=== PATIENT | female | born 1950 ===

== ENCOUNTER 2018-03-03 14:00 | Inpatient (IN) | payer OTHER ==
[2018-03-03] MEDS ORDERED: Albuterol-Ipratrop 3 mg / 0.5 (3 ml) UD INH STA ×3 (14:13→14:57)
[2018-03-03] MEDS ORDERED: Albuterol-Ipratrop 3 mg / 0.5 (3 ml) UD ONE ×2 (14:16→15:00)
--- NOTE | 2018-03-03 14:26 | ED PDOC ---
HPI: SOB/CHF/COPD Time Seen by Provider: 03/03/18 14:06 Chief Complaint (Nursing): Shortness Of Breath Chief Complaint (Provider): Shortness or breath History Per: Patient, EMS History/Exam Limitations: no limitations Onset/Duration Of Symptoms: Days (yesterday) Current Symptoms Are (Timing): Still Present Additional Complaint(s): 67 year old female, with a past medical history of CHF, asthma, hypercholesterolemia, HTN, and hypothyroidism, presented to the ED complaining of SOB and dyspnea on exertion since yesterday. Patient reports she arrived from [place] on Monday and has a "hollowing feeling in her chest." Patient is also complaining of orthopnea and nonproductive cough. She denies leg swelling and calf pain. PCP: none Past Medical History Reviewed: Historical Data, Nursing Documentation, Vital Signs Vital Signs: Last Vital Signs Temp 97.7 F 03/05/18 08:04 Pulse 96 H 03/05/18 08:04 Resp 20 03/05/18 08:04 BP 128/74 03/05/18 08:04 Pulse Ox 95 03/05/18 08:04 - Medical History PMH: Arthritis, Asthma, CHF, HTN, Hypercholesterolemia, Hypothyroidism - Surgical History Surgical History: No Surg Hx - Family History Family History: States: Unknown Family Hx - Social History Current smoker - smoking cessation education provided: No Alcohol: None Drugs: Denies - Home Medications Home Medications: Ambulatory Orders Medication Instructions Recorded Carvedilol [Coreg] 6.25 mg PO BID 03/03/18 Folic Acid [Folic Acid] 5 mg PO DAILY 03/03/18 Home Med [Home Med] 1 drop OU DAILY 03/03/18 Home Med [Home Med] 1 drop OU QID 03/03/18 Home Med [Home Med] 1 tab PO 1700 03/03/18 Home Med [Home Med] 1 tab PO BID 03/03/18 Home Med [Home Med] 1,000 mg PO BID 03/03/18 Home Med [Home Med] 10 mg PO DAILY 03/03/18 Home Med [Home Med] 75 mg PO DAILY 03/03/18 Methotrexate [Methotrexate] 7.5 mg PO DAILY 03/03/18 Rosuvastatin Calcium [Crestor] 10 mg PO HS 03/03/18 - Allergies Allergies/Adverse Reactions: Allergies Allergy/AdvReac Type Severity Reaction Status Date / Time No Known Allergies Allergy Verified 03/03/18 14:06 Review of Systems ROS Statement: Except As Marked, All Systems Reviewed And Found Negative Respiratory: Positive for: Cough (nonproductive), Shortness of Breath, Other ( orthopnea and dyspnea on exertion) Musculoskeletal: Negative for: Other (leg swelling and calf pain) Physical Exam - Reviewed Nursing Documentation Reviewed: Yes Vital Signs Reviewed: Yes - Physical Exam Appears: Positive for: Non-toxic. Negative for: No Acute Distress (mild respiratory distress) Head Exam: Positive for: ATRAUMATIC, NORMOCEPHALIC Skin: Positive for: Normal Color, Warm, Dry Eye Exam: Positive for: Normal appearance Neck: Positive for: Normal, Painless ROM Cardiovascular/Chest: Positive for: Regular Rate, Rhythm. Negative for: Murmur Respiratory: Positive for: Decreased Breath Sounds, Wheezing (bilateral) Extremity: Positive for: Normal ROM. Negative for: Pedal Edema, Calf Tenderness Neurologic/Psych: Positive for: Alert, Oriented. Negative for: Motor/Sensory Deficits - Laboratory Results Result Diagrams: 03/05/18 11:34 03/05/18 11:34 - ECG O2 Sat by Pulse Oximetry: 92 (RA) Pulse Ox Interpretation: Abnormal Medical Decision Making Medical Decision Making: Initial Impression: Asthma, CHF, PE Initial Plan: --ECG --ProBNP --CMP --TSH --Troponin --ED urine dipstick --CBC --D Dimer --PTT --Prothrombin --Chest X-ray --Albuterol 3mL INH --Methylprednisolone 125 mg IV --Blood culture --Peak flow --Urinalysis Scribe Attestation: Documented by Bright Ornelas acting as a scribe for Mikaela Roberts MD. Provider Scribe Attestation: All medical record entries made by the Scribe were at my direction and personally dictated by me. I have reviewed the chart and agree that the record accurately reflects my personal performance of the history, physical exam, medical decision making, and the department course for this patient. I have also personally directed, reviewed, and agree with the discharge instructions and disposition. Disposition - Clinical Impression Clinical Impression: Bronchitis, Asthma exacerbation - Disposition Disposition Time: 15:00 Condition: GUARDED Patient Signed Over To: Nighat Ortiz
[2018-03-03 14:45] LABS: BASO # 0.1 K/uL (0.0-0.2); BASO % 0.9 % (0.0-2.0); EOS % 0.6 % (0.0-4.0); HEMOGLOBIN 13.3 g/dL (12.0-16.0); LYMPH # 0.8 K/uL (1.0-4.3); LYMPH % 10.7 % (20.0-40.0); MEAN CELL VOLUME 86.2 fl (81.0-99.0); MEAN CORPUSCULAR HEMOGLOBIN 28.3 pg (27.0-31.0); MEAN CORPUSCULAR HGB CONC 32.9 g/dL (33.0-37.0); MEAN PLATELET VOLUME 7.7 fl (7.2-11.7); MONO # 0.8 K/uL (0.0-0.8); MONO % 10.1 % (0.0-10.0); NEUT # 5.9 K/uL (1.8-7.0); NEUT % 77.7 % (50.0-75.0); RBC 4.71 Mil/uL (3.80-5.20); RED CELL DISTRIBUTION WIDTH 18.9 % (11.5-14.5); WHITE BLOOD COUNT 7.6 K/uL (4.8-10.8)
--- NOTE | 2018-03-03 14:46 | RAD ---
HISTORY: SOB COMPARISON: No prior. FINDINGS: LUNGS: No active pulmonary disease. PLEURA: No significant pleural effusion identified, no pneumothorax apparent. CARDIOVASCULAR: Left subclavian access biventricular AICD/pacemaker. Atherosclerotic aortic calcifications. Cardiomediastinal silhouette prominent. OSSEOUS STRUCTURES: Degenerative changes. VISUALIZED UPPER ABDOMEN: Normal. OTHER FINDINGS: None. IMPRESSION: No active disease.
[2018-03-03 15:00] LABS: INR 1.2 (0.9-1.2); PARTIAL THROMBOPLASTIN TIME 36.1 Seconds (25.6-37.1); PROTHROMBIN TIME 13.7 Seconds (9.8-13.1)
[2018-03-03 15:08] LABS: ALB/GLOB RATIO 1.1 (1.0-2.1); ALT/SGPT 28 U/L (9-52); AST/SGOT 29 U/L (14-36); BLOOD UREA NITROGEN 13 mg/dl (7-17); CALCIUM 9.3 mg/dL (8.4-10.2); GFR AFRICAN-AMERICAN > 60; GFR NON-AFRICAN AMERICAN > 60
--- NOTE | 2018-03-03 15:14 | ED PDOC ---
- Laboratory Results Result Diagrams: 03/03/18 14:41 03/03/18 14:41 - ECG O2 Sat by Pulse Oximetry: 92 (RA) Medical Decision Making Medical Decision Makin:00 Patient endorsed to me from Dr. Roberts. Pending labs and final disposition. 17:15 Dr. Strong consulted. Upon reevaluation, patient is still short of breath. Patient has a pulse ox of 89-90 and is dyspneic. Peak flow is around 110. Patient has not significantly improved after medications were given in the ED. Will be admitted for persistent asthma exacerbation and oxygen requirement for observation under Dr. Strong. Scribe Attestation: Documented by Bright Ornelas acting as a scribe for Nighat Ortiz MD. Provider Scribe Attestation: All medical record entries made by the Scribe were at my direction and personally dictated by me. I have reviewed the chart and agree that the record accurately reflects my personal performance of the medical decision making and the department course for this patient. I have also personally directed, reviewed, and agree with the discharge instructions and disposition. Disposition Discussed With : Spencer Strong (ines) Doctor Will See Patient In The: Hospital Counseled Patient/Family Regarding: Studies Performed, Diagnosis - Clinical Impression Clinical Impression: Bronchitis, Asthma exacerbation - POA Present On Arrival: None - Disposition Disposition: Hospitalized as Observation Patient Disposition Time: 17:00 Condition: FAIR
[2018-03-03 15:16] LABS: B-TYPE NATRIURETIC PEPTIDE 182 pg/ml (0-900)
[2018-03-03] MEDS: Promethazine 12.5 mg/10 ml Syrup PO SCH (22:30)
[2018-03-04] MEDS: Albuterol-Ipratrop 3 mg / 0.5 (3 ml) UD INH SCH ×5 (00:08→19:20)
[2018-03-04] MEDS ORDERED: Home Med 1 UNIT PO SCH ×5 (09:00→17:00)
[2018-03-04] MEDS: Enoxaparin 40 mg Syringe SC SCH (10:54)
[2018-03-04] MEDS: Promethazine 12.5 mg/10 ml Syrup PO SCH ×4 (10:55→22:00)
[2018-03-04] MEDS: [UNRECOGNIZED DRUG - OTHER] PO SCH (18:52)
[2018-03-04] MEDS ORDERED: methylPREDNISolone 125 MG in Sodium Chloride 0.9% 50 ML IV SCH (22:00)
[2018-03-04] MEDS: CARVEDILOL 6.25 MG PO SCH (22:17)
[2018-03-04] MEDS: COMBIGAN OU SCH ×2 (22:18→22:19)
[2018-03-04] MEDS: FOLIC ACID PO SCH (22:20)
[2018-03-04] MEDS: [UNRECOGNIZED DRUG - OTHER] PO SCH (22:21)
[2018-03-04] MEDS: METHOTREXATE PO SCH (22:22)
[2018-03-04] MEDS: [UNRECOGNIZED DRUG - OTHER] PO SCH (22:23)
[2018-03-04] MEDS: [UNRECOGNIZED DRUG - OTHER] PO SCH (22:24)
[2018-03-05] MEDS: Albuterol-Ipratrop 3 mg / 0.5 (3 ml) UD INH SCH ×4 (01:07→19:21)
--- NOTE | 2018-03-05 08:19 | CP.PCM.HP ---
History of Present Illness - History of Present Illness History of Present Illness: This is a 67 y/o female admitted for increasing SOB since she arrived from [facility] few days ago.She denies any chest paibn but has dry cough. Has a hx of asthma, CHF and HTN and hypothyroidism and has been on maintenance medications. She claims that since she arrived last Monday, she started having dry cough and gets very SOB with light activity. Initial work up showed negative troponin,normal EKG normal CXR and negative proBNP. Present on Admission - Present on Admission Any Indicators Present on Admission: No History of DVT/PE: No History of Uncontrolled Diabetes: No Urinary Catheter: No Decubitus Ulcer Present: No Review of Systems - Respiratory Respiratory: Cough, Dyspnea Past Patient History - Past Medical History & Family History Past Medical History?: Yes - Past Social History Smoking Status: Never Smoked - CARDIAC Hx Cardiac Disorders: Yes (CHF, HTN, HIGH CHOLESTEROL) Hx Hypertension: Yes - PULMONARY Hx Respiratory Disorders: Yes (ASTHMA) - NEUROLOGICAL Hx Neurological Disorder: No - HEENT Hx HEENT Problems: No - RENAL Hx Chronic Kidney Disease: No - ENDOCRINE/METABOLIC Hx Endocrine Disorders: Yes (HYPOTHYROIDISM) Hx Hypothyroidism: Yes - HEMATOLOGICAL/ONCOLOGICAL Hx Blood Disorders: No Hx AIDS: No Hx Human Immunodeficiency Virus (HIV): No - INTEGUMENTARY Hx Dermatological Problems: No - MUSCULOSKELETAL/RHEUMATOLOGICAL Hx Musculoskeletal Disorders: Yes Hx Arthritis: Yes Hx Falls: No - GASTROINTESTINAL Hx Gastrointestinal Disorders: No - GENITOURINARY/GYNECOLOGICAL Hx Genitourinary Disorders: No - PSYCHIATRIC Hx Psychophysiologic Disorder: No Hx Substance Use: No - SURGICAL HISTORY Hx Surgeries: No - ANESTHESIA Hx Anesthesia: Yes Hx Anesthesia Reactions: No Meds Allergies/Adverse Reactions: Allergies Allergy/AdvReac Type Severity Reaction Status Date / Time No Known Allergies Allergy Verified 03/03/18 14:06 Physical Exam - Head Exam Head Exam: NORMAL INSPECTION - Eye Exam Eye Exam: Normal appearance - ENT Exam ENT Exam: Mucous Membranes Moist - Neck Exam Neck exam: Positive for: Normal Inspection - Respiratory Exam Respiratory Exam: Decreased Breath Sounds, Clear to Auscultation Bilateral - Cardiovascular Exam Cardiovascular Exam: REGULAR RHYTHM - GI/Abdominal Exam GI & Abdominal Exam: Normal Bowel Sounds - Neurological Exam Neurological exam: Alert, CN II-XII Intact, Oriented x3 Results - Vital Signs Recent Vital Signs: Last Vital Signs Temp 97.7 F 06/18/18 08:04 Pulse 96 H 03/05/18 08:04 Resp 20 03/05/18 08:04 BP 128/74 03/05/18 08:04 Pulse Ox 95 03/05/18 08:04 - Labs Result Diagrams: 03/03/18 14:41 03/03/18 14:41 Labs: Laboratory Results - last 24 hr 03/05/18 05:40 Troponin I < 0.0120 Assessment & Plan (1) Asthma exacerbation Status: Acute (2) Hypertension Status: Acute - Assessment and Plan (Free Text) Plan: start IV steroids neb tx troponin serial cont home meds check tsh echo
--- NOTE | 2018-03-05 08:25 | CP.PCM.PN ---
Subjective - Date & Time of Evaluation Date of Evaluation: 03/05/18 Time of Evaluation: 08:22 - Subjective Subjective: Patient has less wheezing but continues to have SOB even with light activity. Has no chest pain. Currently on Solumedrol 125 q 8 Objective - Vital Signs/Intake and Output Vital Signs (last 24 hours): Temp Pulse Resp BP Pulse Ox 97.7 F 96 H 20 128/74 95 03/05/18 08:04 03/05/18 08:04 03/05/18 08:04 03/05/18 08:04 03/05/18 08:04 - Medications Medications: Current Medications Albuterol/Ipratropium (Duoneb 3 Mg/0.5 Mg (3 Ml) Ud) 3 ml INH RQ6 [facility] Last Admin: 03/05/18 07:50 Dose: 3 ml Enoxaparin Sodium (Lovenox) 40 mg SC DAILY [facility] PRN Reason: Protocol Last Admin: 03/04/18 10:54 Dose: 40 mg Home Med (Patient's Own Medication) 1 unit PO DAILY [facility] Last Admin: 03/04/18 22:20 Dose: 1 unit Home Med (Patient's Own Medication) 1 unit PO DAILY [facility] PRN Reason: Protocol Last Admin: 03/04/18 22:22 Dose: 1 unit Home Med (Rosuvastatin Calcium [Crestor]) 10 mg PO HS [facility] Last Admin: 03/04/18 22:26 Dose: 10 mg Home Med (Patient Own Control [Patient Own Control]) 75 mg PO DAILY [facility] Last Admin: 03/04/18 18:52 Dose: 75 mg Home Med (Patient's Own Medication) 1 unit PO DAILY@1800 [facility] Last Admin: 03/04/18 22:21 Dose: 1 unit Home Med (Patient's Own Medication) 1 unit PO BID [facility] Last Admin: 03/04/18 22:24 Dose: 1 unit Home Med (Patient's Own Medication) 1 unit PO BID [facility] Last Admin: 03/04/18 22:23 Dose: 1 unit Home Med (Patient's Own Medication) 1 unit OU BID [facility] Last Admin: 03/04/18 22:19 Dose: 1 unit Home Med (Patient's Own Medication) 1 unit OU QID [facility] Last Admin: 03/04/18 22:25 Dose: 1 unit Home Med (Patient's Own Medication) 1 unit PO BID [facility] Last Admin: 03/04/18 22:17 Dose: 1 unit Methylprednisolone (Solu-Medrol) 125 mg IV Q8H [facility] Last Admin: 03/05/18 06:48 Dose: 125 mg Promethazine HCl (Phenergan Syrup) 12.5 mg PO QID [facility] Last Admin: 03/04/18 22:00 Dose: 12.5 mg - Labs Labs: 03/03/18 14:41 03/03/18 14:41 PT 13.7 Seconds (9.8-13.1) H 03/03/18 14:41 INR 1.2 (0.9-1.2) 03/03/18 14:41 APTT 36.1 Seconds (25.6-37.1) 03/03/18 14:41 - Head Exam Head Exam: NORMAL INSPECTION - Eye Exam Eye Exam: Normal appearance - Respiratory Exam Respiratory Exam: Clear to Ausculation Bilateral - Cardiovascular Exam Cardiovascular Exam: REGULAR RHYTHM - GI/Abdominal Exam GI & Abdominal Exam: Normal Bowel Sounds - Neurological Exam Neurological Exam: Awake, Oriented x3 - Psychiatric Exam Psychiatric exam: Normal Mood - Skin Skin Exam: Dry Assessment and Plan (1) Asthma exacerbation Status: Acute (2) Hypertension Status: Acute (3) CAD (coronary artery disease) Status: Acute - Assessment and Plan (Free Text) Plan: Hold carvedilol send for eCHO start Phys therapy
[2018-03-05] MEDS: Enoxaparin 40 mg Syringe SC SCH (08:39)
[2018-03-05] MEDS: [UNRECOGNIZED DRUG - OTHER] PO SCH ×2 (08:41→16:46)
[2018-03-05] MEDS: COMBIGAN OU SCH ×2 (08:42→16:47)
[2018-03-05] MEDS: CARVEDILOL 6.25 MG PO SCH ×2 (08:42→17:32)
[2018-03-05] MEDS: FOLIC ACID PO SCH (08:43)
[2018-03-05] MEDS: METHOTREXATE PO SCH (08:44)
[2018-03-05] MEDS: [UNRECOGNIZED DRUG - OTHER] PO SCH ×3 (08:45→16:55)
[2018-03-05] MEDS: [UNRECOGNIZED DRUG - OTHER] PO SCH ×2 (08:45→16:57)
[2018-03-05] MEDS: Promethazine 12.5 mg/10 ml Syrup PO SCH ×4 (08:46→21:52)
--- NOTE | 2018-03-05 09:34 | CARD ---
APPROVED REPORT EKG Measurement Heart [id number] <Conclusion> Atrial-sensed ventricular-paced rhythm with frequent premature ventricular complexes Abnormal ECG
--- NOTE | 2018-03-05 10:17 | CARD ---
APPROVED REPORT EXAM: Two-dimensional and M-mode echocardiogram with Doppler and color Doppler. Other Information Quality : FairRhythm : Pacemaker Technically limited study due to Poor Echo Window INDICATION Congestive Heart Failure Surgery/Intervention Pacemaker: 2D DIMENSIONS IVSd1.60 (0.7-1.1cm)LVDd3.30 (3.9-5.9cm) PWd1.27 (0.7-1.1cm)IVSs1.71 (0.8-1.2cm) LVDs1.74 (2.5-4.0cm)FS (%) 47.3 % PWs1.56 (0.8-1.2cm) M-Mode DIMENSIONS Left Atrium (MM)3.47 (2.5-4.0cm)IVSd1.29 (0.7-1.1cm) Aortic Root2.94 (2.2-3.7cm)LVDd4.71 (4.0-5.6cm) Aortic Cusp Exc.1.62 (1.5-2.0cm)PWd1.18 (0.7-1.1cm) IVSs1.47 cmFS (%) 31 % LVDs3.24 (2.0-3.8cm)PWs1.65 cm Mitral Valve E/A ratio0.0 TDI E/Lateral E'0.0E/Medial E'0.0 Pulmonary Valve PV Peak [place]232.8cm/s LEFT VENTRICLE The left ventricle is normal size. There is normal left ventricular wall thickness. Left ventricle systolic function is normal. The Ejection Fraction is 65-70%. There is normal LV segmental wall motion. Transmitral Doppler flow pattern is Grade I-abnormal relaxation pattern. RIGHT VENTRICLE The right ventricle is normal size. There is normal right ventricular wall thickness. The right ventricular systolic function is normal. ATRIA The left atrium size is normal. The right atrium size is normal. A pacing lead was seen traversing the tricuspid valve from RA to RV. AORTIC VALVE The aortic valve is normal in structure. No aortic regurgitation is present. There is no aortic valvular stenosis. MITRAL VALVE The mitral valve is normal in structure. There is no evidence of mitral valve prolapse. There is no mitral valve stenosis. There is no mitral valve regurgitation noted. TRICUSPID VALVE The tricuspid valve is normal in structure. There is no tricuspid valve regurgitation noted. PULMONIC VALVE The pulmonary valve is normal in structure. There is no pulmonic valvular regurgitation. GREAT VESSELS The aortic root is normal in size. The IVC is normal in size and collapses >50% with inspiration. PERICARDIAL EFFUSION The pericardium appears normal. <Conclusion> The left ventricle is normal size. There is normal left ventricular wall thickness. There is normal LV segmental wall motion. Left ventricle systolic function is normal. The Ejection Fraction is 65-70%. Transmitral Doppler flow pattern is Grade I-abnormal relaxation pattern.
--- NOTE | 2018-03-05 11:33 | CARD ---
APPROVED REPORT EKG Measurement Heart [id number] NM [id number] <Conclusion> Sinus tachycardia Possible Left atrial enlargement T wave abnormality, consider lateral ischemia Abnormal ECG
[2018-03-05 11:51] LABS: HEMOGLOBIN 13.7 g/dL (12.0-16.0); MEAN CORPUSCULAR HGB CONC 32.6 g/dL (33.0-37.0); RBC 4.88 Mil/uL (3.80-5.20); RED CELL DISTRIBUTION WIDTH 18.8 % (11.5-14.5); WHITE BLOOD COUNT 13.7 K/uL (4.8-10.8)
[2018-03-05 12:23] LABS: BLOOD UREA NITROGEN 22 mg/dl (7-17); CALCIUM 9.3 mg/dL (8.4-10.2); GFR AFRICAN-AMERICAN > 60; GFR NON-AFRICAN AMERICAN > 60
[2018-03-05] MEDS ORDERED: MethylPREDNISolone 40 mg Vial IV SCH (13:45)
[2018-03-05] MEDS: [UNRECOGNIZED DRUG - OTHER] PO SCH (17:35)
[2018-03-05] MEDS: MethylPREDNISolone 40 mg Vial IV SCH (21:52)
[2018-03-05 23:42] VITALS: RESP 20
[2018-03-06] MEDS: Albuterol-Ipratrop 3 mg / 0.5 (3 ml) UD INH SCH ×2 (01:04→07:19)
[2018-03-06 08:59] VITALS: PULSE 73; TEMP 98.2; O2SAT 92
[2018-03-06] MEDS: Enoxaparin 40 mg Syringe SC SCH (09:25)
[2018-03-06] MEDS: [UNRECOGNIZED DRUG - OTHER] PO SCH (09:29)
[2018-03-06] MEDS: FOLIC ACID PO SCH (09:30)
[2018-03-06] MEDS: [UNRECOGNIZED DRUG - OTHER] PO SCH (09:30)
[2018-03-06] MEDS: COMBIGAN OU SCH (09:31)
[2018-03-06] MEDS: CARVEDILOL 6.25 MG PO SCH (09:33)
[2018-03-06] MEDS: Promethazine 12.5 mg/10 ml Syrup PO SCH (09:33)
[2018-03-06] MEDS: [UNRECOGNIZED DRUG - OTHER] PO SCH (09:33)
[2018-03-06] MEDS: MethylPREDNISolone 40 mg Vial IV SCH (09:34)
[2018-03-06 11:28] VITALS: BP 135/72
--- NOTE | 2018-03-06 19:04 | CP.PCM.DIS ---
Provider - Provider Date of Admission: 03/04/18 13:47 Attending physician: Spencer Strong MD Time Spent in preparation of Discharge (in minutes): 30 Diagnosis - Discharge Diagnosis (1) Asthma exacerbation Status: Acute Priority: Low (2) Hypertension Status: Chronic Priority: Low Hospital Course - Lab Results Lab Results: Micro Results 03/03/18 14:45 Blood Blood Culture - Preliminary NO GROWTH AFTER 3 DAYS 03/03/18 14:32 Blood Blood Culture - Preliminary NO GROWTH AFTER 3 DAYS Most Recent Lab Values WBC 13.7 K/uL (4.8-10.8) H D 03/05/18 11:34 RBC 4.88 Mil/uL (3.80-5.20) 03/05/18 11:34 Hgb 13.7 g/dL (12.0-16.0) 03/05/18 11:34 Hct 42.0 % (34.0-47.0) 03/05/18 11:34 MCV 86.0 fl (81.0-99.0) 03/05/18 11:34 MCH 28.0 pg (27.0-31.0) 03/05/18 11:34 MCHC 32.6 g/dL (33.0-37.0) L 03/05/18 11:34 RDW 18.8 % (11.5-14.5) H 03/05/18 11:34 Plt Count 159 K/uL (130-400) 03/05/18 11:34 MPV 7.7 fl (7.2-11.7) 03/03/18 14:41 Neut % (Auto) 77.7 % (50.0-75.0) H 03/03/18 14:41 Lymph % (Auto) 10.7 % (20.0-40.0) L 03/03/18 14:41 [place] % (Auto) 10.1 % (0.0-10.0) H 03/03/18 14:41 Eos % (Auto) 0.6 % (0.0-4.0) 03/03/18 14:41 Baso % (Auto) 0.9 % (0.0-2.0) 03/03/18 14:41 Neut # (Auto) 5.9 K/uL (1.8-7.0) 03/03/18 14:41 Lymph # (Auto) 0.8 K/uL (1.0-4.3) L 03/03/18 14:41 [place] # (Auto) 0.8 K/uL (0.0-0.8) 03/03/18 14:41 Eos # (Auto) 0.0 K/uL (0.0-0.7) 03/03/18 14:41 Baso # (Auto) 0.1 K/uL (0.0-0.2) 03/03/18 14:41 PT 13.7 Seconds (9.8-13.1) H 03/03/18 14:41 INR 1.2 (0.9-1.2) 03/03/18 14:41 APTT 36.1 Seconds (25.6-37.1) 03/03/18 14:41 D-Dimer, Quantitative 181 ng/mlDDU (0-230) 03/03/18 14:41 Sodium 134 mmol/l (132-148) 03/05/18 11:34 Potassium 4.2 MMOL/L (3.6-5.0) 03/05/18 11:34 Chloride 97 mmol/L (98-107) L 03/05/18 11:34 Carbon Dioxide 24 mmol/L (22-30) 03/05/18 11:34 Anion Gap 17 (10-20) 03/05/18 11:34 BUN 22 mg/dl (7-17) H 03/05/18 11:34 Creatinine 0.5 mg/dl (0.7-1.2) L 03/05/18 11:34 Est GFR ( Amer) > 60 03/05/18 11:34 Est GFR (Non-Af Amer) > 60 03/05/18 11:34 Random Glucose 354 mg/dL (65-105) H 03/05/18 11:34 Calcium 9.3 mg/dL (8.4-10.2) 03/05/18 11:34 Total Bilirubin 0.7 mg/dl (0.2-1.3) 03/03/18 14:41 AST 29 U/L (14-36) 03/03/18 14:41 ALT 28 U/L (9-52) 03/03/18 14:41 Alkaline Phosphatase 82 U/L (38-126) 03/03/18 14:41 Troponin I < 0.0120 ng/mL (0.00-0.120) 03/05/18 05:40 NT-Pro-B Natriuret Pep 182 pg/ml (0-900) 03/03/18 14:41 Total Protein 7.8 G/DL (6.3-8.2) 03/03/18 14:41 Albumin 4.0 g/dL (3.5-5.0) 03/03/18 14:41 Globulin 3.8 gm/dL (2.2-3.9) 03/03/18 14:41 Albumin/Globulin Ratio 1.1 (1.0-2.1) 03/03/18 14:41 TSH 3rd Generation 1.06 mIU/ML (0.46-4.68) 03/03/18 14:41 - Hospital Course Hospital Course: 67 yr old F admitted for worsening SOB and found to have asthma exacerbation. Patient improved s/p treatment with respiratory treatments and IV steroids. Echocardiogram showed normal LV size and function woth LVEF of 65-70%. Pro-BNP and troponin were negative, CXR was negative for active disease. Patient was discharged stable with instructions to discontinue her beta lani. Recommended to use advair daily, albuterol pump PRN, follow up in clinic within 1 week. New anti-hypertensive medication started: Diovan 160mg PO QD. - Date & Time of H&P Date of H&P: 03/04/18 Time of H&P: 11:17 Discharge Exam - Head Exam Head Exam: ATRAUMATIC, NORMOCEPHALIC - ENT Exam ENT Exam: Mucous Membranes Moist - Respiratory Exam Respiratory Exam: Clear to PA & Lateral, NORMAL BREATHING PATTERN. absent: Wheezes - Cardiovascular Exam Cardiovascular Exam: REGULAR RHYTHM, +S1, +S2 - GI/Abdominal Exam GI & Abdominal Exam: Normal Bowel Sounds - Extremities Exam Extremities exam: full ROM - Neurological Exam Neurological exam: Alert, Oriented x3 - Psychiatric Exam Psychiatric exam: Normal Affect, Normal Mood - Skin Skin Exam: Dry, Warm Discharge Plan - Discharge Medications Prescriptions: guaiFENesin/Dextromethorphan [Q-Tussin Dm 10 MG/5 Ml-100 MG/5 Ml 120 Ml] 10 ml PO Q6 PRN #120 ml PRN Reason: Cough Methylprednisolone [Medrol Dose Pack (21 tabs)] 4 mg PO DAILY #21 mg Valsartan [Diovan] 160 mg PO DAILY #30 tab - Follow Up Plan Condition: FAIR Disposition: HOME/ ROUTINE Instructions: Asthma, Adult (DC), Acute Bronchitis, Adult (DC), High Blood Pressure (DC), Asthma (DC), Hypertension (DC), Hypertension (GEN) Additional Instructions: follow up with primary MD 1 week Referrals: Spencer Strong MD [Staff Provider] -
== END 2018-03-06 12:08 | disposition home or self-care (01) | DRG 203 ==
LOC: EDBD 14:00 → H.ER 14:00 → H.ERHOLD 17:17 → H.MEDSURG1 18:30 → OBSVTOIN 03-04 13:47
PROVIDERS: ADMIT Family Medicine; ATTEND Family Medicine
DX: J45.901 Unspecified asthma with (acute) exacerbation (principal); E03.9 Hypothyroidism, unspecified; I11.0 Hypertensive heart disease with heart failure; I50.9 Heart failure, unspecified; E78.00 Pure hypercholesterolemia, unspecified; I25.10 Atherosclerotic heart disease of native coronary artery without angina pectoris; M19.90 Unspecified osteoarthritis, unspecified site